=== PATIENT | female | born 1980 | race Caucasian/White ===

== ENCOUNTER 2020-07-21 06:41 | Emergency (ER) | payer OTHER ==
[~2020-07-21] VITALS: Ht 172.7 cm; Wt 81.7 kg
== END 2020-07-21 08:22 | disposition home or self-care (01) ==
LOC: ER 06:41
DX: S01.81XA Laceration without foreign body of other part of head, initial encounter (principal); W01.198A Fall on same level from slipping, tripping and stumbling with subsequent striking against other object, initial encounter
CPT/HCPCS: 12014; 99283; A9270

== ENCOUNTER 2020-07-25 19:04 | Emergency (ER) | payer OTHER ==
[~2020-07-25] VITALS: Ht 172.7 cm; Wt 81.7 kg
== END 2020-07-25 19:51 | disposition home or self-care (01) ==
LOC: ER 19:04
DX: S01.81XD Laceration without foreign body of other part of head, subsequent encounter (principal); X58.XXXD Exposure to other specified factors, subsequent encounter